=== PATIENT | male | born 2000 | race Caucasian/White ===

== ENCOUNTER 2020-08-21 21:33 | Emergency (ER) | payer OTHER, SELFPAY ==
[2020-08-21 21:39] VITALS: BP 151/95; PULSE 85; RESP 18; TEMP 36.6; O2SAT 96; BMI 30.7
[2020-08-21 21:53] VITALS: BP 141/89; PULSE 88; O2SAT 97
[2020-08-21 22:00] VITALS: BP 145/94; PULSE 90; O2SAT 97
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
[2020-08-21 22:30] VITALS: BP 137/87; PULSE 83; O2SAT 98
[2020-08-21 22:51] VITALS: BP 137/87; PULSE 77; RESP 18; TEMP 36.9; O2SAT 97
== END 2020-08-21 23:15 | disposition home or self-care (01) ==
PROVIDERS: Emergency Provider Emergency Medicine; PCP Family Medicine
DX: T22.232A Burn of second degree of left upper arm, initial encounter (principal); T23.272A Burn of second degree of left wrist, initial encounter; T20.20XA Burn of second degree of head, face, and neck, unspecified site, initial encounter; T31.0 Burns involving less than 10% of body surface; X03.0XXA Exposure to flames in controlled fire, not in building or structure, initial encounter; Y92.89 Other specified places as the place of occurrence of the external cause
CPT/HCPCS: 96365; 96375; 99282

== ENCOUNTER 2020-09-03 07:57 | Outpatient (RCR) | payer OTHER, SELFPAY | END 2020-09-03 07:59 | disposition home or self-care (01) | LOC: PT 07:57 | PROVIDERS: Visit Provider Family Medicine | DX: T22.212D Burn of second degree of left forearm, subsequent encounter (principal) | CPT/HCPCS: 97161; 97597; 97598 ==

== ENCOUNTER 2021-09-14 18:51 | Emergency (ER) | payer OTHER, SELFPAY ==
[2021-09-14 18:52] VITALS: BP 117/68; PULSE 78; RESP 18; TEMP 37.1; O2SAT 98; BMI 27.9
--- NOTE | 2021-09-14 20:01 | CT_ITS ---
PROCEDURE INFORMATION: Exam: CT Abdomen And Pelvis With Contrast Exam date and time: 09/14/2021 8:14 PM Age: 20 years old Clinical indication: Other: Black stool; Abdominal pain; Localized; Left lower quadrant (llq); Additional info: Black stool, llq abd pain TECHNIQUE: Imaging protocol: Computed tomography of the abdomen and pelvis with contrast. Radiation optimization: All CT scans at this facility use at least one of these dose optimization techniques: automated exposure control; mA and/or kV adjustment per patient size (includes targeted exams where dose is matched to clinical indication); or iterative reconstruction. Contrast material: ISOVUE; Contrast volume: 75 ml; Contrast route: IV; COMPARISON: No relevant prior studies available. FINDINGS: Liver: Normal. No mass. Gallbladder and bile ducts: Normal. No calcified stones. No ductal dilation. Pancreas: Normal. No ductal dilation. Spleen: Mild splenomegaly. Adrenal glands: Normal. No mass. Kidneys and ureters: Normal. No hydronephrosis. Stomach and bowel: Mild nonspecific bowel wall thickening of the small bowel. Appendix: Unremarkable appendix. Intraperitoneal space: Unremarkable. No free air. No significant fluid collection. Vasculature: Unremarkable. No abdominal aortic aneurysm. Lymph nodes: Unremarkable. No enlarged lymph nodes. Urinary bladder: Unremarkable as visualized. Reproductive: Unremarkable as visualized. Bones/joints: Chronic pars defects of L5. Soft tissues: Tiny fat containing umbilical hernia. Other findings: Stigmata of old granulomatous disease. IMPRESSION: 1. Mild nonspecific bowel wall thickening of the small bowel. Please exclude enteritis. 2. Mild splenomegaly.
[2021-09-14 20:11] LABS: Influenza A, PCR Not Detected (NotDetected); Influenza B, PCR Not Detected (NotDetected)
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
[2021-09-14 20:19] LABS: Alanine Aminotransferase 39 U/L (12-78); Albumin Level 4.4 g/dl (3.5-5.0); Albumin/Globulin Ratio 1.4 (1.1-1.8); Alkaline Phosphatase 62 U/L (38-126); Amylase 46 U/L (30-110); Aspartate Amino Transferase 45 U/L (17-59); Blood Urea Nitrogen 11 mg/dl (9-20); Carbon Dioxide 31 mmol/L (22.0-30.0); Chloride 100 mmol/L (98-107); Creatinine Clearance Estimated 207 mL/min (50-200); Estimated Glomerular Filt Rate 141 ml/min (>60); GFR (African American) 171 ML/MIN (>60); Globulin 3.1 g/dL (1.3-3.2); Glucose 92 mg/dl (74-100); Lipase 267 U/L (23-300); Sodium 138 mmol/L (136-145); Total Protein,Serum 7.5 g/dl (6.3-8.2)
[2021-09-14 20:24] LABS: Bilirubin,Total < 0.1 mg/dl (0.2-1.3); C-Reactive Protein 1.2 mg/L (0-4)
--- NOTE | 2021-09-14 20:31 | PC.NURSE ---
Pt back from RAD
[2021-09-14 20:35] LABS: Procalcitonin 0.039 ng/mL (0.0-2.0)
[2021-09-14 20:40] LABS: Erythrocyte Sedimentation Rate 13 mm/hr (0-15)
[2021-09-14 20:43] LABS: Basophils # 0.1 K/mm3 (0-0.2); Basophils % 3.4 % (0.1-2.0); Eosinophils % 0.6 % (0.1-12.0); Hematocrit 45.6 % (42.0-52.0); Hemoglobin 15.4 g/dL (14.1-18.0); Lymphocytes # 1.2 K/mm3 (0.7-4.5); Lymphocytes % 35.3 % (10-50); Mean Corpuscular HGB Conc 33.8 g/dL (31.8-35.4); Mean Corpuscular Hemoglobin 31.1 pg (27.0-31.2); Mean Corpuscular Volume 92.1 fl (80-94); Monocytes # 0.4 K/mm3 (0.1-1.0); Monocytes % 12.5 % (1.7-9.3); Neutrophils # 1.6 K/mm3 (1.8-7.8); Neutrophils % 48.3 % (37.0-80.0); Platelet Count 234 K/mm3 (142-424); Red Blood Count 4.95 M/mm3 (4.60-6.20); Red Cell Distribution Width 12.7 % (11.5-17.5); White Blood Count 3.3 K/mm3 (4.8-10.8)
[2021-09-14 21:08] LABS: Coronavirus 19, PCR Detected (NotDetected)
--- NOTE | 2021-09-14 22:33 | [facility].EDHA ---
ED Disposition Clinical Impression: COVID-19 Disposition: Home, Self-Care Condition on Discharge: Good Instructions: DI for COVID-19 (Suspected or Confirmed ) Additional Instructions: fluids and use advil/tyenol and call pcp for follow up Referrals: Sangeetha No [Primary Care Provider] - - Critical Care Critical Care Time: No Attestation: On 09/14/21, the high probability of a clinically significant, sudden or life threatening deterioration of the following system(s) required my full and direct attention, intervention and personal management. The time I documented below is in addition to time spent performing reported procedures but includes the following listed in this critical care notation. Medical Decision Making - Medical Records Medical records reviewed: Yes: I reviewed the patient's medical records. - Fei Inquiry Pt receiving controlled substance: No Vital Signs: 09/14/21 18:52 Temperature 98.8 F Temperature Source Oral Pulse Rate [Radial] 78 Respiratory Rate 18 Blood Pressure [Right Arm] 117/68 Blood Pressure Mean [Right Arm] 84 Blood Pressure Position [Right Arm] Sitting 02 Sat by Pulse Oximetry 98 Oxygen Delivery Method Room Air - Lab Data Lab results reviewed: Yes: I reviewed the patient's lab results. Lab Results 09/14/21 19:20: WBC 3.3 L, RBC 4.95, Hgb 15.4, Hct 45.6, MCV 92.1, MCH 31.1, MCHC 33.8, RDW 12.7, Plt Count 234, MPV 9.0, Neut % (Auto) 48.3, Lymph % (Auto) 35.3, Sunflower % (Auto) 12.5 H, Eos % (Auto) 0.6, Baso % (Auto) 3.4 H, Neut # (Auto) 1.6 L, Lymph # (Auto) 1.2, Sunflower # (Auto) 0.4, Eos # (Auto) 0.0, Baso # (Auto) 0.1, ESR 13 09/14/21 19:20: Sodium 138, Potassium 4.0, Chloride 100, Carbon Dioxide 31 H, Anion Gap 11.0, BUN 11, Creatinine 0.70, Estimated Creat Clear 207, Estimated GFR 141, Est GFR ( Amer) 171, Glucose 92, Calcium 9.0, Total Bilirubin < 0.1 L, AST 45, ALT 39, Alkaline Phosphatase 62, C-Reactive Protein 1.2, Total Protein 7.5, Albumin 4.4, Globulin 3.1, Albumin/Globulin Ratio 1.4, Amylase 46, Lipase 267, Procalcitonin 0.039 09/14/21 19:20: SARS-CoV-2 (PCR) Detected A, Influenza A Untype (PCR) Not detected, Influenza Type B (PCR) Not detected Result diagrams: 09/14/21 19:20 09/14/21 19:20 Orders (Tests/Meds): ED MEDICATIONS Generic Name Dose Route Start Last Admin Trade Name Freq PRN Reason Stop Dose Admin Sodium Chloride 10 ml 09/14/21 20:03 09/14/21 20:28 Sodium Chloride 0.9% 10ml Vial IV 10/14/21 20:02 10 ml NEEDED PRN Administration dilute protonix Discontinued Medications Generic Name Dose Route Start Last Admin Trade Name Freq PRN Reason Stop Dose Admin Dexamethasone Sodium Phosphate 10 mg 09/14/21 21:26 09/14/21 21:33 Dexamethasone 4mg/Ml 5ml Mdv IV 09/14/21 21:27 10 mg ONCE ONE Administration Sodium Chloride 1,000 mls @ 999 mls/hr 09/14/21 20:15 09/14/21 20:28 Sod Chlor 0.9% 1000ml Bag IV 09/14/21 21:15 999 mls/hr .Q1H1M MEREDITH Administration Iopamidol 75 ml 09/14/21 20:25 09/14/21 20:26 Iopamidol-370 (76%);100ml Bottle IV 09/14/21 20:26 75 ml ONCE ONE Administration Ketorolac Tromethamine 30 mg 09/14/21 21:26 09/14/21 21:33 Ketorolac 30mg/Ml Vial IV 09/14/21 21:27 30 mg ONCE ONE Administration Pantoprazole Sodium 40 mg 09/14/21 20:03 09/14/21 20:28 Pantoprazole 40mg Vial IV 09/14/21 20:04 40 mg ONCE ONE Administration Sodium Chloride 10 ml 09/14/21 20:25 09/14/21 20:26 Sodium Chloride 0.9% 10ml Syr (Rad Only) IV 09/14/21 20:26 10 ml ONCE ONE Administration ORDERS Category Date Time Status Occult Blood,Stool Stat Lab 09/14/21 20:01 Ordered - CT Data CT Scan: Abdomen, Pelvis Time Received: 22:[address] Reviewed: Yes: I have viewed the radiologist's interpretation Preliminary Findings: Abnormal (nonspecific) Medical Decision Narrative: has stable exam and labs with positive covid-19 and supportive care at this time Head
[2021-09-14 22:37] VITALS: BP 116/67; PULSE 87; RESP 17; TEMP 37.2; O2SAT 98
== END 2021-09-14 22:48 | disposition home or self-care (01) ==
PROVIDERS: Emergency Provider Emergency Medicine; PCP Family Medicine
DX: U07.1 COVID-19 (principal); K59.00 Constipation, unspecified
CPT/HCPCS: 74177; 80053; 82150; 83690; 84145; 85025; 85651; 86140; 96361; 96374; 96375; 99284; C9803; Q9967; U0003; U0005